=== PATIENT | male | born 1970 | race Caucasian/White ===

== ENCOUNTER 2024-11-24 07:08 | Emergency (ER) | payer OTHER ==
[~2024-11-24] VITALS: Ht 175.3 cm; Wt 113.4 kg
[2024-11-24] MEDS ORDERED: CLONIDINE HCL 0.2 MG TABLET ONE (07:54)
[2024-11-24] MEDS: CLONIDINE HCL 0.2 MG TABLET PO ONE (07:57)
[2024-11-24 08:13] LABS: BASOPHILS % (AUTO) 0.4 % (0.0-2.0); EOSINOPHILS # (AUTO) 0.2 K/uL (0.0-0.7); EOSINOPHILS % (AUTO) 2.5 % (0.0-7.0); HEMATOCRIT 44.4 % (36.7-47.1); HEMOGLOBIN 15.4 g/dL (12.5-16.3); LYMPHOCYTES # (AUTO) 2.4 K/uL (0.8-4.8); LYMPHOCYTES % (AUTO) 34.7 % (20.5-51.5); MEAN CORPUSCULAR HEMOGLOBIN 31.6 uug (23.8-33.4); MEAN CORPUSCULAR HGB CONC 35 g/dL (32.5-36.3); MONOCYTES # (AUTO) 0.7 K/uL (0.1-1.30); MONOCYTES % (AUTO) 9.6 % (0.0-11.0); NEUTROPHILS # (AUTO) 3.6 K/uL (1.8-8.9); NEUTROPHILS % (AUTO) 52.8 % (38.5-71.5); PLATELET COUNT (AUTO) 268 K/uL (152-348); RED BLOOD CELL COUNT(AUTO) 4.88 MIL/uL (4.06-5.63); RED CELL DISTRIBUTION WIDTH 13.2 % (12.1-16.2); WHITE BLOOD COUNT (AUTO) 6.9 K/uL (3.6-10.2)
[2024-11-24 08:53] LABS: DIFFERENTIAL COMMENT 1
[2024-11-24 08:54] LABS: CALCIUM 8.4 mg/dL (8.5-10.1); CARBON DIOXIDE 28 mmol/L (21-32); CHLORIDE 103 mmol/L (98-107); CREATININE 1.1 mg/dL (0.6-1.3); GLUCOSE 114 mg/dL (74-106); POTASSIUM 3.8 mmol/L (3.5-5.1); SODIUM SERUM 142 mmol/L (136-145); UREA NITROGEN, BLOOD 9 mg/dL (7-18)
[2024-11-24 09:06] LABS: ALANINE AMINOTRANSFERASE 35 U/L (16-63); ALBUMIN 3.1 g/dL (3.4-5.0); ALKALINE PHOSPHATASE 66 U/L (50-136); ASPARTATE AMINOTRANSFERASE 24 U/L (15-37); BILIRUBIN,DIRECT 0.2 mg/dL (0.0-0.2); BILIRUBIN,TOTAL 1.3 mg/dL (0.2-1.0); NT-PRO BNP 81 pg/mL (0-125); TOTAL PROTEIN, SERUM 7.3 g/dL (6.4-8.2)
[2024-11-24] MEDS ORDERED: AMLO5TAB4 PO (09:08)
[2024-11-24] MEDS ORDERED: LOSA50TA39 PO (09:08)
[2024-11-24 09:48] VITALS: BP 166/106; O2SAT 98
== END 2024-11-24 09:49 | disposition home or self-care (01) ==
LOC: ER 07:20
DX: S05.11XA Contusion of eyeball and orbital tissues, right eye, initial encounter (principal); S80.211A Abrasion, right knee, initial encounter; S09.8XXA Other specified injuries of head, initial encounter; M79.641 Pain in right hand; R07.9 Chest pain, unspecified; I10 Essential (primary) hypertension; Z79.899 Other long term (current) drug therapy; V23.49XA Other motorcycle driver injured in collision with car, pick-up truck or van in traffic accident, initial encounter; Y93.89 Activity, other specified; Y92.488 Other paved roadways as the place of occurrence of the external cause; Y99.8 Other external cause status
CPT/HCPCS: 36415; 70450; 70486; 71045; 72125; 73130; 84484; 85025; 85730; A4606; A4663